=== PATIENT | male | born 1970 | race Hispanic/Latino ===

== ENCOUNTER → 2020-02-03 | Day surgery (SDC) | payer OTHER ==
[2020-02-01 10:20] LABS: BASOPHILS % 0.4 % (0.0-1.0); EOSINOPHILS # (AUTO) 0.3 (0.0-0.4); HEMOGLOBIN 12.7 g/dL (14.0-18.0); LYMPHOCYTES % 29.9 % (18.0-39.1); MEAN CORPUSCULAR HEMOGLOBIN 28.1 pg (28-32); MEAN CORPUSCULAR HGB CONC 31.8 g/dL (31-35); MEAN CORPUSCULAR VOLUME 88.5 fL (81-99); MONOCYTES # (AUTO) 0.7 (0.2-0.8); MONOCYTES % 7.3 % (4.4-11.3); NEUTROPHILS # (AUTO) 5.9 (2.1-6.9); NEUTROPHILS % 59.1 % (38.7-80.0); PLATELET COUNT 339 x10e3/uL (140-360); RED BLOOD COUNT 4.52 x10e6/uL (4.3-5.7); RED CELL DISTRIBUTION WIDTH 13.7 % (11.7-14.4)
[2020-02-01 10:32] LABS: ALANINE AMINOTRANSFERASE 20 IU/L (0-55); ALBUMIN 3.7 g/dL (3.5-5.0); ALBUMIN/GLOBULIN RATIO 0.8 (0.8-2.0); ALKALINE PHOSPHATASE 117 IU/L (40-150); ANION GAP 13.7 mmol/L (8-16); BLOOD UREA NITROGEN 16 mg/dL (7-26); BUN/CREATININE RATIO 20 (6-25); CALCIUM 9.9 mg/dL (8.4-10.2); CARBON DIOXIDE 26 mmol/L (22-29); CHLORIDE 103 mmol/L (98-107); CREATININE, SERUM 0.79 mg/dL (0.72-1.25); EST GLOMERULAR FILTRATION RATE > 60 ML/MIN (60-); GLUCOSE 166 mg/dL (74-118); POTASSIUM 4.7 mmol/L (3.5-5.1); SODIUM 138 mmol/L (136-145)
[2020-02-01 10:33] LABS: INR 0.91; PROTHROMBIN TIME 12.8 seconds (11.9-14.5)
[~2020-02-03] VITALS: Ht 165.1 cm; Wt 84.8 kg
[2020-02-03] VITALS (7 sets, daily range): BP systolic 139–159; BP diastolic 80–87
[~2020-02-03] MED LIST: ATORVASTATIN CA20 MG PO; BACTRIM 400-801 EACH; FENTANYL CITRATE/PF 100MCG/2 ML INJ ONE; HEPARIN SOD (PORCINE) 1000 UNIT/ML 30ML ONE; HEPARIN SOD/SOD CHLORIDE 2,000 ML ONE; IOPAMIDOL 300MG/ML 100 ML INFUS..BTL IV ONE; JARDIANCE10 MG; LIDOCAINE HCL 2% LOCAL 20 ML VIAL ONE; METFORMIN HCL500 M1; MIDAZOLAM HCL 2 MG/2 ML VIAL ONE; NITROGLYCERIN/D5W 200 MCG/ML 250 ML ONE; SODIUM CHLORIDE 0.9% 1000ML 1,000 ML ONE; ZESTRIL20 MG PO
--- NOTE | 2020-02-03 19:10 | Operative Report ---
DATE OF PROCEDURE: SURGEON: Michelet Chavarria DO PROCEDURES PERFORMED: 1. Conscious sedation 30 minutes. 2. Abdominal aortography. 3. Bilateral extremity angiography. 4. Third-order peripheral angiography of the right lower extremity. PREPROCEDURE DIAGNOSIS: Ulcer of the foot. POSTPROCEDURE DIAGNOSIS: No significant peripheral artery disease. ESTIMATED BLOOD LOSS: Less than 10 mL. SPECIMENS REMOVED: None. PROCEDURE IN DETAIL: After informed consent was obtained, the patient was brought to the cardiac catheterization laboratory in a fasting and nonsedated state. Bilateral groins were prepped and draped in the usual sterile fashion. A 2% lidocaine was infiltrated over the left anterior groin for local anesthesia. Using a micropuncture needle, the left common femoral artery was accessed via the modified Seldinger technique and a 5-Mont[place]grin sheath was placed. Abdominal aortography was performed using Omni Flush catheter. This was taken over the iliac bifurcation, which then was exchanged out for a multipurpose catheter, which was taken down to the 3rd order position and angiographic images were performed. Next, I performed angiography of the left lower extremity. The patient tolerated the procedure well with no immediate complications and transferred back to his room in stable condition. Hemostasis was achieved via Mynx device. PROCEDURAL FINDINGS: There is no significant peripheral arterial disease in the aorta or bilateral extremities. The inflow, outflow, and runoff vessels are all patent. There is 3-vessel runoff to the bilateral feet. IMPRESSION: Peripheral arterial disease with ulcer of the foot. RECOMMENDATIONS: The patient will be evaluated for venous insufficiency. Michelet Chavarria DO BM/MODL /[id number]
== END | disposition home or self-care (01) ==
LOC: CATH LAB 09:32
PROVIDERS: ATTEND Internal Medicine Cardiovascular Disease
DX: I73.9 Peripheral vascular disease, unspecified (principal); L97.509 Non-pressure chronic ulcer of other part of unspecified foot with unspecified severity; I10 Essential (primary) hypertension; E78.00 Pure hypercholesterolemia, unspecified; E13.69 Other specified diabetes mellitus with other specified complication; Z01.812 Encounter for preprocedural laboratory examination; Z01.818 Encounter for other preprocedural examination; Z11.59 Encounter for screening for other viral diseases; Z79.84 Long term (current) use of oral hypoglycemic drugs; Z68.30 Body mass index [BMI] 30.0-30.9, adult
CPT/HCPCS: 36247; 36415; 75625; 75716; 80053; 85025; 85610; 87635; C1760; C1769 ×2; J2001; J2250; J3010; J7030; Q9967; 99152; J1644

== ENCOUNTER → 2020-08-01 | Day surgery (SDC) | payer OTHER ==
[~2020-08-01] MED LIST changes: +BUPIVACAINE HCL 0.5% INJ 30 ML VIAL INJ ONE; +CEFAZOLIN SOD 1 GM/NS 50ML 50 ML IV ONE; +DEXAMETHASONE SOD PHOS INJ 4 MG/ML VIAL ONE; -HEPARIN SOD (PORCINE) 1000 UNIT/ML 30ML ONE; -HEPARIN SOD/SOD CHLORIDE 2,000 ML ONE; -IOPAMIDOL 300MG/ML 100 ML INFUS..BTL IV ONE; -JARDIANCE10 MG; +JARDIANCE10 MG PO; -LIDOCAINE HCL 2% LOCAL 20 ML VIAL ONE; +LIDOCAINE HCL 2% LOCAL INJ 5 ML SDV VIAL INJ ONE; -NITROGLYCERIN/D5W 200 MCG/ML 250 ML ONE; +ONDANSETRON HCL INJ 2MG/ML 2ML 2 MG/ML VIAL ONE; +PROPOFOL IV EMULSION 10 MG/ML 20 ML VIAL ONE; +SEVOFLURANE INHAL SOLN 250 ML PEN BTL ONE; -SODIUM CHLORIDE 0.9% 1000ML 1,000 ML ONE; +VANCOMYCIN HCL 1 GM VIAL ONE
[2020-08-01 06:10] LABS: ANION GAP 16.1 mmol/L (8-16); BLOOD UREA NITROGEN 17 mg/dL (7-26); BUN/CREATININE RATIO 22 (6-25); CALCIUM 9.5 mg/dL (8.4-10.2); CARBON DIOXIDE 23 mmol/L (22-29); CHLORIDE 100 mmol/L (98-107); CREATININE, SERUM 0.76 mg/dL (0.72-1.25); EST GLOMERULAR FILTRATION RATE > 60 ML/MIN (60-); GLUCOSE 136 mg/dL (74-118); POTASSIUM 4.1 mmol/L (3.5-5.1); SODIUM 135 mmol/L (136-145)
[2020-08-01 08:11] VITALS: BP 139/87
== END | disposition home or self-care (01) ==
LOC: OR 05:15
PROVIDERS: ATTEND Podiatrist Foot & Ankle Surgery
DX: M86.072 Acute hematogenous osteomyelitis, left ankle and foot (principal); M86.171 Other acute osteomyelitis, right ankle and foot; M86.671 Other chronic osteomyelitis, right ankle and foot; M87.9 Osteonecrosis, unspecified; E11.9 Type 2 diabetes mellitus without complications; I10 Essential (primary) hypertension; R05 Cough; F41.9 Anxiety disorder, unspecified; Z01.810 Encounter for preprocedural cardiovascular examination; Z01.812 Encounter for preprocedural laboratory examination; Z01.818 Encounter for other preprocedural examination; Z20.828 Contact with and (suspected) exposure to other viral communicable diseases; Z79.84 Long term (current) use of oral hypoglycemic drugs
CPT/HCPCS: 11981; 28122; 36415; 71046; 80048; 82948; 87071; 87075; 87186; 87205; 88305; 88311; 88342; 93005; C1713; J0690; J2001; J2250; J2405; J2704; J3010; J3370; U0002; 88304; J1100

== ENCOUNTER 2022-09-11 09:29 | Inpatient (IN) | payer OTHER ==
[2022-09-09 13:55] LABS: BASOPHILS # (AUTO) 0.1 (0.0-0.1); BASOPHILS % 0.5 % (0.0-1.0); EOSINOPHILS # (AUTO) 0.2 (0.0-0.4); EOSINOPHILS % 2.1 % (0.0-6.0); HEMATOCRIT 44.1 % (38.2-49.6); HEMOGLOBIN 13.4 g/dL (14.0-18.0); LYMPHOCYTES # (AUTO) 3.5 (1.0-3.2); LYMPHOCYTES % 34.1 % (18.0-39.1); MEAN CORPUSCULAR HEMOGLOBIN 28.4 pg (28-32); MEAN CORPUSCULAR HGB CONC 30.4 g/dL (31-35); MEAN CORPUSCULAR VOLUME 93.4 fL (81-99); MONOCYTES # (AUTO) 0.7 (0.2-0.8); MONOCYTES % 6.6 % (4.4-11.3); NEUTROPHILS # (AUTO) 5.8 (2.1-6.9); NEUTROPHILS % 56.3 % (38.7-80.0); PLATELET COUNT 295 x10e3/uL (140-360); RED BLOOD COUNT 4.72 x10e6/uL (4.3-5.7); RED CELL DISTRIBUTION WIDTH 12.8 % (11.7-14.4)
[2022-09-09 14:19] LABS: ANION GAP 15.7 mmol/L (8-16); CALCIUM 9.7 mg/dL (8.4-10.2); CREATININE, SERUM 0.85 mg/dL (0.72-1.25); POTASSIUM 4.7 mmol/L (3.5-5.1)
[~2022-09-11] VITALS: Ht 317.5 cm; Wt 86.2 kg
[~2022-09-11 09:29] MED LIST changes: -BUPIVACAINE HCL 0.5% INJ 30 ML VIAL INJ ONE; -CEFAZOLIN SOD 1 GM/NS 50ML 50 ML IV ONE; +CRESTOR10 MG PO; -DEXAMETHASONE SOD PHOS INJ 4 MG/ML VIAL ONE; -FENTANYL CITRATE/PF 100MCG/2 ML INJ ONE; -LIDOCAINE HCL 2% LOCAL INJ 5 ML SDV VIAL INJ ONE; +METFORMIN HCL500 MG PO; +METOPROLOL SUCC50 MG PO; -MIDAZOLAM HCL 2 MG/2 ML VIAL ONE; -ONDANSETRON HCL INJ 2MG/ML 2ML 2 MG/ML VIAL ONE; -PROPOFOL IV EMULSION 10 MG/ML 20 ML VIAL ONE; -SEVOFLURANE INHAL SOLN 250 ML PEN BTL ONE; -VANCOMYCIN HCL 1 GM VIAL ONE; +VITAMIN D3 COM1 EACH PO
[2022-09-11] MEDS ORDERED: CRESTOR10 MG PO (10:21)
[2022-09-11] MEDS ORDERED: METOPROLOL SUCC50 MG PO (10:22)
[2022-09-11] MEDS ORDERED: [UNRECOGNIZED DRUG - OTHER] PO (10:28)
[2022-09-11] MEDS ORDERED: VITAMIN D PO (10:28)
[2022-09-11] MEDS ORDERED: LIDOCAINE HCL 2% LOCAL 20 ML VIAL ONE (12:37)
[2022-09-11] MEDS ORDERED: BUPIVACAINE 0.25% 30ML SDV ONE (12:37)
[2022-09-11] MEDS ORDERED: SUGAMMADEX SODIUM 200 MG/2 ML VIAL IV ONE (12:53)
[2022-09-11] MEDS ORDERED: MIDAZOLAM HCL 2 MG/2 ML VIAL ONE (13:09)
[2022-09-11] MEDS ORDERED: FENTANYL CITRATE/PF 100MCG/2 ML INJ ONE (13:09)
[2022-09-11] MEDS: SODIUM CHLORIDE 0.9% 1000ML 1,000 ML IV SCH (17:13)
[2022-09-11 17:30] VITALS: BP 146/81
[2022-09-11] MEDS ORDERED: SODIUM CHLORIDE 0.9% 100 ML ONE (19:47)
[2022-09-11 20:10] VITALS: BP 121/80
[2022-09-11] MEDS ORDERED: DEXTROSE 50% SYRINGE 50 ML IV PRN (22:30)
[2022-09-11] MEDS: INSULIN REGULAR, HUMAN 100 UNIT/1 ML SQ SCH (22:57)
[2022-09-11] MEDS: HYDROMORPHONE 1MG/1ML INJ IV PRN (23:01)
[2022-09-12] VITALS (8 sets, daily range): BP systolic 117–139; BP diastolic 67–77
[2022-09-12] MEDS: SODIUM CHLORIDE 0.9% 1000ML 1,000 ML IV SCH ×3 (02:55→23:59)
[2022-09-12] MEDS: INSULIN REGULAR, HUMAN 100 UNIT/1 ML SQ SCH ×3 (05:35→17:14)
[2022-09-12] MEDS ORDERED: DEXAMETHASONE SOD PHOS INJ 4 MG/ML SDV ONE (12:27)
[2022-09-12] MEDS ORDERED: POVIDONE IODINE 0.05% 0.05 % ML PO ONE (12:27)
[2022-09-12] MEDS ORDERED: PROPOFOL IV EMULSION 10 MG/ML 20 ML VIAL ONE (12:27)
[2022-09-12] MEDS ORDERED: SEVOFLURANE INHAL SOLN 250 ML PEN BTL ONE (12:27)
[2022-09-12] MEDS ORDERED: EPHEDRINE SULFATE INJ 50 MG/ML VIAL ONE (12:27)
[2022-09-12] MEDS ORDERED: SUGAMMADEX SODIUM 200 MG/2 ML VIAL IV ONE (12:27)
[2022-09-12] MEDS ORDERED: ROCURONIUM BROMIDE 10 MG/ML 5ML VIAL IV ONE (12:27)
[2022-09-12] MEDS ORDERED: LIDOCAINE HCL 2% LOCAL INJ 5 ML SDV VIAL INJ ONE (12:27)
[2022-09-12] MEDS ORDERED: ONDANSETRON HCL INJ 2MG/ML 2ML 2 MG/ML VIAL ONE (12:27)
[2022-09-12] MEDS: HYDROMORPHONE 1MG/1ML INJ IV PRN (17:08)
[2022-09-13] VITALS (8 sets, daily range): BP systolic 121–147; BP diastolic 73–92
[2022-09-13] MEDS: INSULIN REGULAR, HUMAN 100 UNIT/1 ML SQ SCH ×4 (06:37→17:12)
[2022-09-13] MEDS: METOPROLOL SUCCINATE 50 MG TAB XL PO SCH (09:00)
[2022-09-13] MEDS: HYDROMORPHONE 1MG/1ML INJ IV PRN ×2 (09:01→22:44)
[2022-09-13] MEDS: SODIUM CHLORIDE 0.9% 1000ML 1,000 ML IV SCH (17:08)
[2022-09-14] VITALS (8 sets, daily range): BP systolic 121–148; BP diastolic 73–87
[2022-09-14] MEDS: INSULIN REGULAR, HUMAN 100 UNIT/1 ML SQ SCH ×4 (02:10→17:58)
[2022-09-14] MEDS: METOPROLOL SUCCINATE 50 MG TAB XL PO SCH (08:18)
[2022-09-14] MEDS: SODIUM CHLORIDE 0.9% 1000ML 1,000 ML IV SCH (20:12)
[2022-09-14] MEDS: HYDROMORPHONE 1MG/1ML INJ IV PRN (20:53)
[2022-09-15] VITALS (7 sets, daily range): BP systolic 123–176; BP diastolic 74–94
[2022-09-15] MEDS: INSULIN REGULAR, HUMAN 100 UNIT/1 ML SQ SCH ×3 (00:20→12:04)
[2022-09-15] MEDS: METOPROLOL SUCCINATE 50 MG TAB XL PO SCH (09:43)
[2022-09-15] MEDS: HYDROCODONE/APAP 7.5MG-325MG 1 EA TAB PO PRN ×2 (11:00→18:12)
== END 2022-09-15 18:16 | disposition home or self-care (01) | DRG 476 ==
LOC: OR 09:29 → PACU V 14:59 → MED/SURG 16:38
PROVIDERS: ADMIT Surgery; ATTEND Surgery
PROC: 0Y6H0Z3 Detachment at Right Lower Leg, Low, Open Approach (ICD-10-PCS; principal; 2022-09-11 12:39)
DX: M86.671 Other chronic osteomyelitis, right ankle and foot (principal); E11.69 Type 2 diabetes mellitus with other specified complication; I10 Essential (primary) hypertension; Z79.84 Long term (current) use of oral hypoglycemic drugs; Z20.822 Contact with and (suspected) exposure to COVID-19
CPT/HCPCS: 0223U; 36415; 80053; 82948; 85025; 88304; 88307; 88311; 93005; 96361; J0696; J1100; J1170; J1817; J2001; J2250; J2405; J3010; J7030; J7050

== ENCOUNTER → 2024-11-26 | Day surgery (SDC) | payer OTHER ==
[~2024-11-26] MED LIST changes: +FENTANYL CITRATE/PF 100MCG/2 ML INJ ONE; +HYOSCYAMINE SULFATE 0.5 MG/ML INJ ONE; +MIDAZOLAM HCL 2 MG/2 ML VIAL ONE; +NOVOLIN N100 UNIT/1 SC; +PROPOFOL IV EMULSION 10 MG/ML 20 ML VIAL ONE; +VITAMIN D PO; +XIGDUO XR 5 MG1 EAC1 PO; +[UNRECOGNIZED DRUG - OTHER] PO
[2024-11-26] MEDS: LACTATED RINGER'S 1,000 ML ONE (09:08)
[2024-11-26 10:50] VITALS: BP 107/62; PULSE 62; RESP 16; O2SAT 94
== END | disposition home or self-care (01) ==
LOC: OR 08:16
PROVIDERS: ATTEND Internal Medicine Gastroenterology
DX: K29.50 Unspecified chronic gastritis without bleeding (principal); D12.3 Benign neoplasm of transverse colon; D12.4 Benign neoplasm of descending colon; K62.1 Rectal polyp; B96.81 Helicobacter pylori [H. pylori] as the cause of diseases classified elsewhere; K20.90 Esophagitis, unspecified without bleeding; K21.9 Gastro-esophageal reflux disease without esophagitis; K44.9 Diaphragmatic hernia without obstruction or gangrene; K22.89 Other specified disease of esophagus; K64.8 Other hemorrhoids; E11.9 Type 2 diabetes mellitus without complications; I10 Essential (primary) hypertension; E78.5 Hyperlipidemia, unspecified; F41.9 Anxiety disorder, unspecified; Z79.84 Long term (current) use of oral hypoglycemic drugs; Z79.899 Other long term (current) drug therapy
CPT/HCPCS: 43239; 45385; J1980; J2250; J2470; J2704; J3010; J7121; 45378